=== PATIENT | female | born 1940 | race Caucasian/White ===

== ENCOUNTER 2018-04-25 21:44 | Emergency (ER) | payer MEDICARE ==
[2018-04-25 22:10] VITALS: BP 173/81; PULSE 72; RESP 24; TEMP 97
[2018-04-26 04:44] LABS: Mucus,Urine Rare /hpf; RBC,Urine 1 /hpf (0-5); WBC,Urine 4 /hpf (0-5)
[2018-04-26 04:45] LABS: Appearance,Urine Clear (Clear); Bilirubin,Urine Negative (Negative); Blood,Urine Negative (Negative); Color,Urine Yellow; Glucose,Urine (UA) Negative (Negative); Ketones,Urine Negative (Negative); Leukocyte Esterase,Urine Small (Negative); Nitrite,Urine Negative (Negative); PH, Urine 7.5 (5.0-8.0); Protein,Urine Negative (Negative); Specific Gravity,Urine 1.021 (1.001-1.035); Urobilinogen,Urine <2.0 mg/dL (<2.0)
[2018-04-26 05:12] LABS: Albumin 4.4 g/dL (3.5-5.0); Calcium 9.6 mg/dL (8.4-10.2); Potassium 4.8 mmol/L (3.5-5.1); Total Bilirubin 0.5 mg/dL (0.2-1.3); Total Protein 7.2 g/dL (6.3-8.2)
[2018-04-26 05:51] LABS: Basophils % (A) 0 %; Eosinophils # (A) 0.1 k/uL (0-0.7); Eosinophils % (A) 1 %; HCT 44.4 % (34.0-46.0); HGB 14.8 gm/dL (11.4-16.0); Lymphocytes # (A) 0.7 k/uL (1.0-4.8); Lymphocytes % (A) 7 %; MCH 32.7 pg (25.0-35.0); MCHC 33.3 g/dL (31.0-37.0); Monocytes # (A) 0.5 k/uL (0-1.0); Monocytes % (A) 4 %; Neutrophils % (A) 87 %; Platelet Count 123 k/uL (150-450); RBC 4.53 m/uL (3.80-5.40); RDW 14.4 % (11.5-15.5); WBC 10.4 k/uL (3.8-10.6)
--- NOTE | 2018-04-26 09:07 | CT ---
EXAM: CT Abdomen and Pelvis With Intravenous Contrast CLINICAL HISTORY: mid to lower abd pain TECHNIQUE: Axial computed tomography images of the abdomen and pelvis with 100 mL of Isovue-300 intravenous contrast. CTDI is 31.8 mGy and DLP is 1227.8 MGy-cm. This CT exam was performed using one or more of the following dose reduction techniques: automated exposure control, adjustment of the mA and/or kV according to patient size, and/or use of iterative reconstruction technique. Coronal and sagittal reconstructions are performed COMPARISON: No relevant prior studies available. FINDINGS: Lung bases: A couple of subcentimeter subpleural nodule opacities in right lower lobe measures less than 4 mm, best seen on series 3 images 6- 9. Mediastinum: Large hiatal hernia. ABDOMEN: Liver: Unremarkable. No mass. Gallbladder and bile ducts: 5 x 9 mm stone in the neck of gallbladder. No ductal dilation. Pancreas: Unremarkable. No mass. No ductal dilation. Spleen: Unremarkable. No splenomegaly. Adrenals: Unremarkable. No mass. Kidneys and ureters: Unremarkable. No solid mass. No hydronephrosis. Stomach and bowel: Multiple loops of small bowel are mildly dilated to 3.8 cm in maximal diameter, indicating obstruction. Transitional zone is in left parastomal hernia, best seen on series 3 images 57-59. No mucosal thickening. PELVIS: Appendix: No findings to suggest acute appendicitis. Bladder: Unremarkable. No mass. Reproductive: Unremarkable as visualized. ABDOMEN and PELVIS: Intraperitoneal space: Unremarkable. No free air. No significant fluid collection. Bones/joints: Osteopenia. Moderate degenerative changes. Mild lower lumbar scoliosis convexed to the left. No acute fracture. No dislocation. Soft tissues: See above. Vasculature: Unremarkable. No abdominal aortic aneurysm. Lymph nodes: Unremarkable. No enlarged lymph nodes. Other findings: Left pelvic Navarro's pouch. Midline pelvic scar. IMPRESSION: 1. Left parastomal hernia containing short segment of small bowel causes proximal small bowel obstruction 2. A couple of subcentimeter subpleural nodule opacities in right lower lobe measures less than 4 mm. For low-risk patients, no follow-up is necessary. For high-risk patients (smoking history or other known risk factors) an optional chest CT at 12 months could be performed. 3. Large hiatal hernia. 4. 5 x 9 mm stone in the neck of gallbladder. [employer] 04/26/18 02:03 Verify Receipt Verified receipt with [facility]ia Multani in the ER, report for Dr. Trujillo on 04/26 02:00 (-04:00)
== END 2018-04-26 04:18 | disposition other institution (70) ==
LOC: EC 21:44
DX: K56.609 Unspecified intestinal obstruction, unspecified as to partial versus complete obstruction (principal); K43.5 Parastomal hernia without obstruction or gangrene
CPT/HCPCS: 36415; 80053; 82150; 82977; 83690; 85025; 81001; 74177; 99285; 96374; 96375; 96376; 96361; Q9967